=== PATIENT | female | born 1960 | race African-American/Black ===

== ENCOUNTER 2018-03-17 18:12 | Emergency (ER) | payer OTHER ==
[~2018-03-17] VITALS: Ht 162.6 cm; Wt 73.9 kg
[~2018-03-17 18:12] MED LIST: FLUOXETINE HCL20 M2 PO; FLUOXETINE20 MG/5 ML PO; HYCET 7.5 MG-3473 ML PO; LISINOPRIL10 M1 PO; PROTONIX40 M3 PO
--- NOTE | 2018-03-17 18:59 | CT SCAN REPORT ---
EXAMINATION: CT HEAD WITHOUT CONTRAST CLINICAL INFORMATION: Status post fall with head strike. Evaluate for intracranial hemorrhage. COMPARISON: No relevant prior imaging. TECHNIQUE: Contiguous axial imaging was performed from the skull base to vertex without intravenous administration of contrast. DLP: 613.57 mGy-cm FINDINGS: There is no acute intracranial hemorrhage or abnormal extra-axial collection. No intracranial mass effect or midline shift. Lateral and third ventricles are normal. No hydrocephalus. Moon-white matter differentiation is grossly preserved and there is no evidence of acute territorial infarct. The calvarium and skull base are intact. Mastoid air cells and middle ear cavities are well aerated. Visualized paranasal sinuses are well aerated. IMPRESSION: Unremarkable CT scan of the head. No acute intracranial hemorrhage.
[2018-03-17] MEDS ORDERED: LISINOPRIL-HCT1 EAC2 PO (19:57)
[2018-03-17] MEDS ORDERED: FLUOXETINE HCL40 M1 PO (19:57)
[2018-03-17] MEDS ORDERED: FLUOXETINE HCL20 M2 PO (19:57)
[2018-03-17] MEDS ORDERED: MULTIVITAMINS1 EAC9 PO (19:58)
--- NOTE | 2018-03-17 20:01 | ED HEAD/FACIAL INJ COMPLAINT ---
History of Present Illness General Chief Complaint: Facial or Head Injury Stated Complaint: FALL TODAY, C/O NAUSEA,HEADACHE Source: patient Exam Limitations: no limitations Vital Signs & Intake/Output Vital Signs & Intake/Output Vital Signs Date Time Temp Pulse Resp B/P B/P Pulse O2 O2 Flow FiO2 Mean Ox Delivery Rate 03/17 2028 98.7 64 18 142/76 97 Room Air 03/177 98.4 55 18 151/85 98 Room Air ED Intake and Output 03/18 0000 03/17 1200 Intake Total Output Total Balance Patient 163 lb Weight Weight Reported by Patient Measurement Method Allergies Coded Allergies: No Known Allergies (06/07/17) Reconcile Medications Fluoxetine HCl 20 MG CAPSULE 1 CAP PO EOD MENTAL HEALTH (Reported) Fluoxetine HCl 40 MG CAPSULE 1 CAP PO EOD MENTAL HEALTH (Reported) Lisinopril/Hydrochlorothiazide (Lisinopril-Hctz 10-12.5 MG Tab) 10 MG-12.5 MG TABLET 1 TAB PO DAILY BP (Reported) Multiple Vitamin (Multivitamins) 1 EACH TABLET 1 TAB PO DAILY SUPPLEMENT ( Reported) Triage Note: 57 YO FEMALE TO TRIAGE FOR EVAL OF SAVAGE/NAUSEA S/P TRIP AND FALL. PT REPORTS SHE MISSED A STEP AND HIT THE THE CHEECK ON THE FLOOR. DENIES LOC. REPORTS SINCE THEN SHE HAS BEEN +NAUSEA AND HAD A SAVAGE. PT A&O X3. Triage Nurses Notes Reviewed? yes Onset: Abrupt Severity: moderate Location: frontal Method of Injury: fall Loss of Consciousness: no loss of consciousness HPI: 57-year-old female presents emergency department complaining of fall with head strike prior to arrival. Patient states that she was at the gym when she fell onto the right side of her face. There was no loss of consciousness or blackout. Patient reports moderate headache to bilateral frontal region. She states she had nausea earlier when she arrived here in the hospital however this has resolved. Patient reports mild worsening of headache when she attempts to redirect or focus her eyes. Patient also reports mild pain to right rib cage area in which she described as slight aching. She denies vomiting, visual changes, abdominal pain, pleuritic pain. (Ava BOYLE,Amairani Johnson) Past History Travel History Traveled to [place] past 21 day No Medical History Any Pertinent Medical History? 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 No (Amairani Ashley) Review of Systems Review of Systems Constitutional: Reports: no symptoms. EENTM: Reports: no symptoms. Respiratory: Reports: no symptoms. Cardiovascular: Reports: no symptoms. GI: Reports: see HPI. Genitourinary: Reports: no symptoms. Musculoskeletal: Reports: see HPI. Skin: Reports: no symptoms. Neurological/Psychological: Reports: see HPI. Hematologic/Endocrine: Reports: no symptoms. Immunologic/Allergic: Reports: no symptoms. All Other Systems: Reviewed and Negative (Amairani Ashley) Physical Exam Physical Exam General Appearance: well developed/nourished, no apparent distress, alert, awake Head: atraumatic, normal appearance Eyes: Bilateral: normal appearance. Ears, Nose, Throat: hearing grossly normal Neck: normal inspection, supple, full range of motion Respiratory: normal breath sounds, no respiratory distress, lungs clear, mild right sided rib cage tenderness Cardiovascular: regular rate/rhythm Back: normal inspection, normal range of motion Extremities: normal inspection, normal range of motion Psychiatric: awake, alert, oriented x 3 Cranial Nerves: normal hearing, normal speech, PERRL, CN II-XII intact Coordination/Gait: normal finger to nose, normal gait Motor/Sensory: no motor/sensory deficits Skin: intact, normal color, warm/dry (Amairani Ashley) Progress Differential Diagnosis: ICH, skull fracture, rib fracture, concussion Plan of Care: Patient's head CT scan is within normal limits. She is neurologically intact, answers questions readily, ambulates with a steady gait. Patient symptoms may be related to mild concussion. She is educated on signs and symptoms of concussion and given a handout of information regarding concussions. Patient was offered rib x-rays for her rib tenderness however declines. Her tenderness is mild, no pleuritic pain, breath sounds are clear bilaterally, low suspicion for acute displaced rib fracture in this patient based on these findings and her mechanism of injury. Patient will return with worsening symptoms or concerns. She agrees with the plan of care. Diagnostic Imaging: Viewed by Me: CT Scan. Discussed w/RAD: CT Scan. Radiology Impression: PATIENT: CHARLI JORDAN PRESENT AGE: 57 PATIENT ACCOUNT NO: [id number] : 61 LOCATION: [facility] ORDERING PHYSICIAN: Amairani BOYLE SERVICE DATE: 03/17/18 EXAM TYPE: CAT - CT HEAD WO IV CONTRAST EXAMINATION: CT HEAD WITHOUT CONTRAST CLINICAL INFORMATION: Status post fall with head strike. Evaluate for intracranial hemorrhage. COMPARISON: No relevant prior imaging. TECHNIQUE: Contiguous axial imaging was performed from the skull base to vertex without intravenous administration of contrast. DLP: 613.57 mGy-cm FINDINGS: There is no acute intracranial hemorrhage or abnormal extra-axial collection. No intracranial mass effect or midline shift. Lateral and third ventricles are normal. No hydrocephalus. Moon-white matter differentiation is grossly preserved and there is no evidence of acute territorial infarct. The calvarium and skull base are intact. Mastoid air cells and middle ear cavities are well aerated. Visualized paranasal sinuses are well aerated. IMPRESSION: Unremarkable CT scan of the head. No acute intracranial hemorrhage. DICTATED BY: Dale West MD DATE/ TIME DICTATED:03/17/181852 NURSE ANESTHETIST:CHRISTINE DATE/TIME TRANSCRIBED: 03/17/181852 CONFIDENTIAL, DO NOT COPY WITHOUT APPROPRIATE AUTHORIZATION. < Electronically signed in Other Vendor System> SIGNED BY: Dale West MD 03/17/181858 (Ava BOYLE,Amairani Johnson) Departure Departure Disposition: HOME OR SELF CARE Condition: Stable Clinical Impression Primary Impression: Fall Qualifiers: Encounter type: initial encounter Qualified Code: W19.XXXA - Unspecified fall, initial encounter Secondary Impressions: Head injury Qualifiers: Encounter type: initial encounter Qualified Code: S09.90XA - Unspecified injury of head, initial encounter Referrals: Mary MONTEMAYOR,Carlos Pires (PCP/Family) Additional Instructions: You may have a concussion. You were given a packet on some symptoms of concussion. Avoid excessive televisions/computer use, reading, exercise until your symptoms have resolved. It is recommended you do not continue to exercise in to your symptoms have been on for 24 hours. With any worsening symptoms or concerns please return here to the emergency department. Please note that there might be incidental findings in your evaluation that are unrelated to the current emergency department visit. Please notify your primary care doctor about this emergency department visit in order to obtain and review all of the testing performed so that these incidental findings can be monitored as needed. If you had an x-ray performed, please understand that some fractures may not be seen on the initial set of x-rays. If your symptoms persist you might need a repeat set of x-rays to check for such a fracture. If you had a laceration evaluated, please understand that foreign bodies such as glass or wood may not be visible to the naked eye or on plain x-rays. If the wound becomes red, swollen, increasingly more painful or if there is any drainage from the wound, please have it reevaluated by a physician for the possibility of a retained foreign body. If you're unable to follow up as outlined in the discharge instructions please return to the emergency department. Thank you for choosing the [facility] Emergency Department for your care. It was a pleasure to serve you today. Departure Forms: Customer Survey General Discharge Information (Ava BOYLE,Amairani Johnson) PA/METABOLIC SPECIALIST Co-Sign Statement Statement: ED Attending supervision documentation- I saw and evaluated the patient. I have also reviewed all the pertinent lab results and diagnostic results. I agree with the findings and the plan of care as documented in the PA's/METABOLIC SPECIALIST's documentation. x I have reviewed the ED Record and agree with the PA's/METABOLIC SPECIALIST's documentation. [] Additions or exceptions (if any) to the PAs/METABOLIC SPECIALIST's note and plan are summarized below: [] (Ishmael MONTEMAYOR,Eloy)
[2018-03-17 20:28] VITALS: BP 142/76
== END 2018-03-17 20:29 ==
LOC: ERH 18:12
DX: S09.90XA Unspecified injury of head, initial encounter (principal); W19.XXXA Unspecified fall, initial encounter; Y92.39 Other specified sports and athletic area as the place of occurrence of the external cause